=== PATIENT | male | born 1995 | race Caucasian/White ===

== ENCOUNTER 2025-05-21 13:17 | Emergency (ER) | payer MEDICAID ==
[~2025-05-21] VITALS: Ht 177.8 cm; Wt 159.0 kg
[2025-05-21 13:20] VITALS: O2SAT 99
[2025-05-21] MEDS: ADENOSINE 3 MG/ML 2ML VIAL IV ONE (13:49)
[2025-05-21 15:11] VITALS: BP 140/87; PULSE 99; RESP 18; TEMP 36.9; O2SAT 100
[2025-05-21 15:17] LABS: BASOPHILS % 0.5 % (0.0-2.0); EOSINOPHILS % 2.5 % (0.0-5.0); HEMATOCRIT. 43.7 % (42.0-52.0); HEMOGLOBIN. 14.5 g/dL (14.0-18.0); LYMPHOCYTES % 26.8 % (20.0-50.0); MONOCYTES % 8.9 % (2.0-8.0); NEUTROPHILS % 61.3 % (40.0-76.0); RED BLOOD CELL COUNT 5.10 mill/uL (4.7-6.1); RED CELL DISTRIBUTION WIDTH 13.6 % (11.6-14.6)
[2025-05-21 15:30] LABS: CREATININE 1.0 mg/dL (0.6-1.3); UREA NITROGEN BLOOD 13 mg/dL (9-23)
[2025-05-21 15:44] LABS: MEAN PLATELET VOLUME 10.3 fl (7.4-10.4); PLATELET 218 x1000/uL (130-400)
== END 2025-05-21 15:21 | disposition home or self-care (01) ==
LOC: ER 13:17
DX: I47.10 Supraventricular tachycardia, unspecified (principal); Z98.890 Other specified postprocedural states
CPT/HCPCS: 99291; 80048; 83735; 85025; 36415; 93005; 99152; J0153